=== PATIENT | male | born 1990 | race Caucasian/White ===

== ENCOUNTER 2023-06-02 21:30 | Emergency (ER) | payer OTHER ==
[~2023-06-02] VITALS: Ht 188 cm; Wt 99.8 kg
[2023-06-02] MEDS ORDERED: KETOROLAC TROMETHAMINE INJ 60 MG/2 ML VIAL IM ONE ×2 (22:53→23:00)
[2023-06-02] MEDS ORDERED: dexaMETHasone SOD PHOSPHATE 1 ML ONE (22:53)
[2023-06-02] MEDS ORDERED: dexaMETHasone SOD PHOSPHATE 4 MG/ML VIAL IM ONE (23:00)
[2023-06-02] MEDS ORDERED: CARI350T PO (23:42)
[2023-06-02] MEDS ORDERED: IBUP-1957 PO (23:42)
[2023-06-02] MEDS ORDERED: PRED50TA PO (23:42)
[2023-06-02] MEDS ORDERED: HYDR-3972 PO (23:42)
[2023-06-03 00:43] VITALS: BP 141/86; TEMP 97.9; O2SAT 97
== END 2023-06-03 00:43 | disposition home or self-care (01) ==
LOC: ER 21:33
DX: M54.42 Lumbago with sciatica, left side (principal); M51.26 Other intervertebral disc displacement, lumbar region; Z79.899 Other long term (current) drug therapy; Z90.49 Acquired absence of other specified parts of digestive tract
CPT/HCPCS: 99285; 72131; 96372 ×2; J1100; J1885